=== PATIENT | male | born 1980 | race Caucasian/White ===

== ENCOUNTER 2019-03-12 19:47 | Emergency (ER) | payer MEDICAID, OTHER ==
[~2019-03-12] VITALS: Ht 177.8 cm; Wt 124.7 kg
[2019-03-12 19:52] VITALS: BP_SYST 201
--- NOTE | 2019-03-12 23:38 | NUR ---
Patient to ER CHAIR to gown for evaluation. Side rails up. Report given to BRISA LIGHT.
--- NOTE | 2019-03-12 23:40 | NUR ---
Patient c/o discomfort to bottom of inside lip x 1 month. Pt states it's to the point that is affecting him when eating. Pt denies any trauma. Noted minor swelling to inside of lip. No other injuries/complaints per patient or noted.
--- NOTE | 2019-03-12 23:48 | NUR ---
ER Dr. Torres at bedside examining patient.
[2019-03-13 00:02] VITALS: BP_SYST 148
--- NOTE | 2019-03-13 00:14 | NUR ---
Patient given written and verbal discharge instructions and verbalizes understanding. ER MD discussed with patient the results and treatment provided. Patient in stable condition. ID arm band removed. No Rx given. Patient educated on pain management and to follow up with PMD. Pain Scale 0. Opportunity for questions provided and answered. Medication side effect fact sheet provided.
== END 2019-03-13 00:14 | disposition home or self-care (01) ==
LOC: SED 19:47
DX: I86.8 Varicose veins of other specified sites (principal); I10 Essential (primary) hypertension; Z86.73 Personal history of transient ischemic attack (TIA), and cerebral infarction without residual deficits; Z87.19 Personal history of other diseases of the digestive system; Z88.0 Allergy status to penicillin
CPT/HCPCS: 99281